=== PATIENT | female | born 1990 | race Caucasian/White ===

== ENCOUNTER 2020-09-01 06:49 | Outpatient (CLI) | payer OTHER ==
--- NOTE | 2020-09-01 12:31 | RAD ---
PA AND LATERAL VIEWS CHEST: HISTORY: Preoperative evaluation. FINDINGS: The cardiomediastinum is normal. The lungs are well expanded and clear. The bony thorax is normal. IMPRESSION: Normal exam. POS: AH
[2020-09-01 12:58] LABS: #Eosinphils 0.3 10x3/uL (0.0-0.5); #Monocytes 0.5 10x3/uL (0.0-1.1); #Neutrophils 4.3 10x3/uL (1.5-8.4); %Basophils 0.4 % (0.0-2.0); %Eosinophils 3.6 % (0.0-6.0); %Lymphocytes 29.9 % (18.0-47.0); %Monocytes 7.4 % (0.0-10.0); %Neutrophils 58.6 % (40.0-75.0); Hemoglobin 13.7 g/dL (12.0-16.0); Mean Corpuscular HGB CONC 31.6 G/DL (32.0-36.0); Mean Corpuscular Hemoglobin 28.9 PG (27.0-33.0); Mean Corpuscular Volume 91.4 fl (80.0-100.0); Mean Platelet Volume 9.9 fl (7.4-10.4); Platelet Count 246 10x3/uL (130-400); RBC Distribution Width 12.9 % (11.5-14.5); Red Blood Cell (RBC) Count 4.74 10x6/uL (3.90-5.20); White Blood Cell (WBC) Count 7.3 10x3/uL (4.5-11.0)
[2020-09-01 13:00] LABS: BHCG - Serum Negative (NEGATIVE); Pregs Control Background? CLEAR/WHITE (CLR/WHITE); Pregs Control Bar Appear? YES (CONTROL BAR)
[2020-09-01 15:00] LABS: ALT (SGPT) 56 U/L (8-55); AST (SGOT) 35 U/L (5-34); Albumin 4.3 g/dL (3.5-5.0); Alkaline Phosphatase 54 U/L (40-110); Anion Gap 20 mmol/L (10-20); BUN (Urea Nitrogen) 9 mg/dL (7.0-18.7); Bilirubin, Total 0.7 mg/dL (0.2-1.2); Calc. Creatinine Clearance 0 mL/min (70-130); Calcium 9.2 mg/dL (7.8-10.44); Carbon Dioxide 21 mmol/L (22-29); Chloride 105 mmol/L (98-107); Estimated GFR-MDRD 89; Globulin 2.3 g/dL (2.4-3.5); Glucose 85 mg/dL (70-105); Potassium 4.7 mmol/L (3.5-5.1); Protein, Total 6.6 g/dL (6.0-8.3); Sodium 141 mmol/L (136-145)
[2020-09-01 16:45] LABS: Hemoglobin A1c 5.3 % (4.0-6.0)
[2020-09-04 00:12] LABS: SARS-CoV-2 MS2 Positive; SARS-CoV-2 N Gene Negative; SARS-CoV-2 S Gene Negative; SARS-CoV-2 by NAA Not Detected (Not Detected); SARS-CoV-2 orf1ab Negative
--- NOTE | 2020-09-06 19:24 | EKG ---
Test Reason : PREOP Blood Pressure : / mmHG Vent. Rate : 077 BPM Atrial Rate : 077 BPM P-R Int : 130 ms QRS Dur : 080 ms QT Int : 392 ms P-R-T Axes : 022 056 051 degrees QTc Int : 443 ms Normal sinus rhythm Normal ECG Confirmed by RICHIE SCHMIDT, DR. Ramos ([id number]) on 09/06/2020 7:24:06 PM Referred By: JAKE Confirmed By:DR. Rachel QUIROZ MD
== END 2020-09-01 06:50 | disposition home or self-care (01) ==
LOC: LABBT 06:49
PROVIDERS: ATTEND Surgery
DX: Z01.818 Encounter for other preprocedural examination (principal); Z20.828 Contact with and (suspected) exposure to other viral communicable diseases; E66.01 Morbid (severe) obesity due to excess calories
CPT/HCPCS: 71046; 80053; 83036; 84703; 85025; 87635; 93005; 93010; U0003

== ENCOUNTER 2020-09-01 11:45 | Inpatient (IN) | payer OTHER ==
[2020-09-01 09:27] VITALS: BMI 49.5
[2020-09-06] MEDS ORDERED: Dexamethasone 20 MG/5 ML VIAL ONE (08:37)
[2020-09-06] MEDS ORDERED: Lidocaine 1% PF 5 ML VIAL ONE (08:37)
[2020-09-06] MEDS ORDERED: Ondansetron PF 4 MG/2 ML Vial ONE (08:37)
[2020-09-06] MEDS ORDERED: Rocuronium Bromide 10 MG/ML (10ML VIAL) ONE (08:37)
[2020-09-06] MEDS ORDERED: PROPOFOL 200 MG/20 ML VIAL ONE (08:37)
[2020-09-06] MEDS ORDERED: SUGAMMADEX SODIUM 200 MG/2 ML VIAL ONE (12:50)
[2020-09-06] MEDS ORDERED: Fentanyl 100 MCG/2 ML VIAL ONE ×2 (12:50→14:51)
[2020-09-06] MEDS ORDERED: Bupivacaine 0.25% HCL 30 ML VIAL ONE (12:51)
[2020-09-06] MEDS ORDERED: Lidocaine 1% w/Epinephrine 1:100K 20 ML VIAL ONE (12:51)
[2020-09-06] MEDS ORDERED: Promethazine HCl 25 MG/ML VIAL IM PRN ×3 (14:25→15:45)
[2020-09-06] MEDS ORDERED: Promethazine HCl 25 MG/ML VIAL SLOW IVP PRN (14:25)
[2020-09-06] MEDS ORDERED: Meperidine HCl/PF 25 MG/ML VIAL SLOW IVP PRN (14:25)
[2020-09-06] MEDS ORDERED: HYDROmorphone 2 MG/ML VIAL SLOW IVP PRN (14:25)
[2020-09-06] MEDS ORDERED: Morphine Sulfate 2 MG/ML SYRINGE SLOW IVP PRN (14:25)
[2020-09-06] MEDS ORDERED: Ondansetron HCl/PF 4 MG/2 ML Vial IVP PRN (14:25)
[2020-09-06] MEDS ORDERED: Ketorolac Tromethamine 30 MG/ML VIAL IVP PRN ×2 (14:25→14:34)
[2020-09-06] MEDS ORDERED: PACU-Morphine 4MG/ML VIAL SLOW IVP PRN (14:25)
[2020-09-06] MEDS ORDERED: fentaNYL Citrate/PF 2,000 MCG in Sodium Chloride 0.9% 60 ML IV PRN (14:34)
[2020-09-06] MEDS ORDERED: Naloxone HCl 0.4 mg/ml Vial IV PRN (14:34)
[2020-09-06] MEDS ORDERED: Zolpidem Tartrate 5 MG TAB PO PRN (14:34)
[2020-09-06] MEDS ORDERED: Ondansetron PF 4 MG/2 ML Vial IVP PRN ×2 (14:34→15:45)
[2020-09-06] MEDS ORDERED: diphenhydrAMINE 50 MG/ML VIAL IVP PRN ×2 (14:34→15:45)
[2020-09-06] MEDS ORDERED: diphenhydrAMINE 25 MG CAP PO PRN (14:34)
[2020-09-06] MEDS ORDERED: diphenhydrAMINE 50 MG/ML VIAL IM PRN (14:34)
[2020-09-06] MEDS ORDERED: Communication Order-Pharmacy FS SCH (14:45)
[2020-09-06] MEDS ORDERED: Promethazine HCl 25 MG/ML VIAL ONE (14:51)
[2020-09-06] MEDS ORDERED: Dextrose 50% Abboject 50 ML SYRINGE SLOW IVP PRN (15:45)
[2020-09-06] MEDS ORDERED: Dextrose 5% in Water 1,000 ML IV PRN (15:45)
[2020-09-06] MEDS ORDERED: hydrALAZINE 20 MG/ML VIAL SLOW IVP PRN (15:45)
[2020-09-06] MEDS ORDERED: Hydrocodone-Acetamin 15 ML UDCUP PO PRN (15:45)
[2020-09-06] MEDS: D5 1/2 NS w/20 mEq KCL 1,000 ML IV SCH (17:04)
--- NOTE | 2020-09-06 18:09 | OP ---
DATE OF PROCEDURE: 09/06/2020 PREOPERATIVE DIAGNOSIS: Morbid obesity with a body mass index of 49. POSTOPERATIVE DIAGNOSIS: Morbid obesity with a body mass index of 49. PROCEDURE PERFORMED: Laparoscopic sleeve gastrectomy with Ethicon staple line reinforcements and 38-[place] bougie. ANESTHESIA: General. ESTIMATED BLOOD LOSS: Minimal. COMPLICATIONS: None. SPECIMEN: Stomach. DESCRIPTION OF PROCEDURE: The patient was taken to the operating room and laid supine on the operating room table. After general anesthetic was obtained, arms and legs were double strapped to bariatric table. OG tube was used to decompress the stomach. The abdomen was prepped and draped in a sterile fashion. Left subcostal 5 mm Optiview trocar placed in the usual fashion and high-flow pneumoperitoneum was obtained. Right and left abdominal 12 mm ports as well as a right subcostal 5 mm port were placed under direct visualization. 5 mm incision was made at the xiphoid and Yeyo was used to raise the liver off the GE junction. The short gastrics were taken down from a distance of 6 cm proximal to the pylorus all the way to the left brandy. Left brandy, posterior fundus, angle of His were completely dissected. There was no hiatal hernia. Short gastrics were taken down to a distance of 6 cm proximal to the pylorus. A 38-[place] bougie was brought in and its tip left in the antrum of the stomach. Multiple loads of an [place] stapling device with Ethicon staple line reinforcements were used to form the sleeve. The first was fired up at the distance of 6 cm proximal to the pylorus angled up to the incisura. Care was taken to avoid being too close to the incisura. Multiple loads then fired up along the bougie. Stomach was completely transected at the angle of His. Stomach was removed from left abdominal incision. This defect in the fascia was closed using GraNee needle and Vicryl tie. Yeyo retractor was removed. EGD scope was passed esophagus stomach to the level of duodenum without obstruction. There was no stricture at the incisura. EGD scope was passed through the esophagus and stomach to the level of the duodenum without obstruction. There was no stricture at the incisura. EGD scope was used to decompress the stomach, it was pulled and removed. All port sites were infiltrated using local anesthetic. All ports were removed under camera visualization without bleeding. Pneumoperitoneum was let down. All incisions were closed using 4-0 Monocryl and Dermabond. The patient was sent to Recovery in stable condition. All instrument counts, needle counts, and lap counts were correct. Job ID: [id number]
[2020-09-06] MEDS ORDERED: Enoxaparin Sodium 40 MG/0.4 ML SYRINGE SC SCH (21:00)
[2020-09-07 05:20] LABS: #Lymphocytes 0.8 thou/uL (1.20-3.40); #Monocytes 0.4 thou/uL (0.11-0.59); #Neutrophils 11.6 thou/uL (1.40-6.50); %Basophils 0.1 % (0.0-1.0); %Eosinophils 0.1 % (0.0-10.0); %Lymphocytes 5.9 % (21.0-51.0); %Monocytes 3.1 % (0.0-10.0); %Neutrophils 90.7 % (42.0-75.0); Hemoglobin 13.8 g/dL (12.0-16.0); Mean Corpuscular HGB CONC 33.1 g/dL (32.0-36.0); Mean Corpuscular Hemoglobin 29.8 pg (27.0-31.0); Mean Corpuscular Volume 89.9 fL (78.0-98.0); Mean Platelet Volume 7.4 fL (7.4-10.4); Platelet Count 238 thou/uL (130-400); RBC Distribution Width 12.1 % (11.5-14.5); Red Blood Cell (RBC) Count 4.63 mill/uL (4.20-5.40); White Blood Cell (WBC) Count 12.7 thou/uL (4.8-10.8)
[2020-09-07 05:38] LABS: Anion Gap 12 mmol/L (10-20); BUN (Urea Nitrogen) 4 mg/dL (7.0-18.7); Calc. Creatinine Clearance 257 mL/min (70-130); Carbon Dioxide 24 mmol/L (22-29); Chloride 104 mmol/L (98-107); Estimated GFR-MDRD Greater than 90; Glucose 152 mg/dL (70-105); Potassium 4.2 mmol/L (3.5-5.1); Sodium 136 mmol/L (136-145)
[2020-09-07] MEDS: D5 1/2 NS w/20 mEq KCL 1,000 ML IV SCH ×2 (06:04→08:20)
--- NOTE | 2020-09-07 07:05 | PDOC.GSPN ---
Surgery Progress Note: Subj - Subjective Patient reports: tolerating liquids well (Has only drank water so far, but is to lerating it.), still having pain (complains of pain in the upper abdominal area, rating it a 5/10. In no acute distress otherwise.) Surgery Progress Note: Obj - Vital signs Vital signs: Vital Signs - Most Recent Temp Pulse Resp BP Pulse Ox 98 F 80 16 115/81 92 L 09/07/20 04:10 09/07/20 04:10 09/07/20 04:10 09/07/20 04:10 09/07/20 04:10 - Physical Exam General: no distress, well nourished, moderate pain Cardiovascular: regular rate and rhythm, no murmur Respiratory: clear to auscultation, normal respiratory effort Abdomen: soft, nondistended Wound: healing well Surgery Progress Note: Results - Labs Result Diagrams: 09/07/20 05:07 09/07/20 05:07 Lab results: Laboratory Results - last 12 hr 09/07/20 09/07/20 05:07 05:07 WBC 12.7 H RBC 4.63 Hgb 13.8 Hct 41.6 MCV 89.9 MCH 29.8 MCHC 33.1 RDW 12.1 Plt Count 238 MPV 7.4 Neutrophils % 90.7 H Lymphocytes % 5.9 L Monocytes % 3.1 Eosinophils % 0.1 Basophils % 0.1 Neutrophils # 11.6 H Lymphocytes # 0.8 L Monocytes # 0.4 Eosinophils # 0.0 Basophils # 0.0 Sodium 136 Potassium 4.2 Chloride 104 Carbon Dioxide 24 Anion Gap 12 BUN 4 L Creatinine 0.71 Estimated GFR (MDRD) Greater than 90 Glucose 152 H Calcium 9.0 Surgery Progress Note: A/P - Plan Plan: Ms. Mei Nielsen is a 30 yo female 1 day post gastric sleeve. Today, she complains of upper abdominal pain, rating it a 5/10. She describes it as aching and tight. She isn't in acute distress. She states that the fentanyl isn't working as well for her, and has tried to use it as little as possible. Otherwise, pt is ambulating, utilizing the spirometer. She denies SOB, fever, chills, and vomiting. Plan: Continue monitoring vitals and labs. Continue to control pain.
[2020-09-07] MEDS ORDERED: Hydrocodone-Acetamin 15 ML UDCUP PO PRN (08:54)
[2020-09-07] MEDS ORDERED: FLU VACC QS2020-21(6MOS UP)/PF 60 MCG/0.5 ML SYRINGE IM ONE (09:00)
[2020-09-07] MEDS ORDERED: Pantoprazole 40 MG VIAL IVP SCH (09:00)
[2020-09-07 11:28] VITALS: BP 120/75; TEMP 98.2
--- NOTE | 2020-09-08 01:00 | DIS ---
DATE OF ADMISSION: 09/06/2020 DATE OF DISCHARGE: 09/07/2020 ADMITTING DIAGNOSIS: Morbid obesity. DISCHARGE DIAGNOSIS: Morbid obesity. PROCEDURE: Laparoscopic sleeve gastrectomy by Dr. Amin without complication. CONDITION ON DISCHARGE: Improved. STAFF: Nas Amin MD HOSPITAL COURSE: Patient was doing well on postop day one, tolerating liquids, ambulatory. She is discharged home. She will follow up with me in the office in 2 weeks. Prescriptions for Lortab Elixir, Zofran, pantoprazole already called to her pharmacy. Job ID: [id number]
== END 2020-09-07 12:21 | disposition home or self-care (01) | DRG 621 ==
LOC: SURG A 09-06 10:22
PROVIDERS: ADMIT Surgery; ATTEND Surgery
PROC: 0DB64Z3 Excision of Stomach, Percutaneous Endoscopic Approach, Vertical (ICD-10-PCS; principal; 2020-09-06)
PROC: 0DJ08ZZ Inspection of Upper Intestinal Tract, Via Natural or Artificial Opening Endoscopic (ICD-10-PCS; 2020-09-06)
DX: E66.01 Morbid (severe) obesity due to excess calories (principal); Z68.42 Body mass index [BMI] 45.0-49.9, adult; Z90.49 Acquired absence of other specified parts of digestive tract
CPT/HCPCS: 36415; 80048; 85025; 88307; 88312; C9113; J0690; J1100; J1650; J2405; J2550; J2704; J3010; J3480; S0020

== ENCOUNTER 2020-09-08 10:06 | Emergency (ER) | payer OTHER ==
[2020-09-08] MEDS ORDERED: Promethazine HCl 25 MG/ML VIAL ONE (10:19)
[2020-09-08] MEDS ORDERED: Ondansetron PF 4 MG/2 ML Vial ONE (10:19)
[2020-09-08 11:31] LABS: #Lymphocytes 2.5 thou/uL (1.20-3.40); #Neutrophils 7.5 thou/uL (1.40-6.50); %Basophils 0.1 % (0.0-1.0); %Eosinophils 0.2 % (0.0-10.0); %Lymphocytes 22.6 % (21.0-51.0); %Neutrophils 68.2 % (42.0-75.0); Hemoglobin 12.9 g/dL (12.0-16.0); Mean Corpuscular HGB CONC 32.6 g/dL (32.0-36.0); Mean Corpuscular Hemoglobin 30.1 pg (27.0-31.0); Mean Corpuscular Volume 92.3 fL (78.0-98.0); Mean Platelet Volume 7.5 fL (7.4-10.4); Platelet Count 207 thou/uL (130-400); RBC Distribution Width 12.5 % (11.5-14.5); White Blood Cell (WBC) Count 11.1 thou/uL (4.8-10.8)
[2020-09-08 11:54] LABS: ALT (SGPT) 35 U/L (8-55); AST (SGOT) 19 U/L (5-34); Albumin 3.9 g/dL (3.5-5.0); Alkaline Phosphatase 49 U/L (40-110); Anion Gap 14 mmol/L (10-20); BUN (Urea Nitrogen) 9 mg/dL (7.0-18.7); Bilirubin, Total 0.6 mg/dL (0.2-1.2); Calc. Creatinine Clearance 0 mL/min (70-130); Carbon Dioxide 25 mmol/L (22-29); Chloride 104 mmol/L (98-107); Estimated GFR-MDRD Greater than 90; Globulin 2.6 g/dL (2.4-3.5); Glucose 73 mg/dL (70-105); Lipase 9 U/L (8-78); Potassium 3.9 mmol/L (3.5-5.1); Protein, Total 6.5 g/dL (6.0-8.3); Sodium 139 mmol/L (136-145)
[2020-09-08 13:22] LABS: Bilirubin Negative (Negative); Blood, Urine Negative (Negative); Clarity Clear (Clear); Glucose, Urine (Dipstick) Normal (Negative); Ketone, Urine 150 mg/dL (Negative); Leukocyte Negative Leu/uL (Negative); Nitrite Negative (Negative); Protein, Urine (Dipstick) 20 mg/dL (Neg-Trace); pH, Urine 6.5 (5.0-9.0)
== END 2020-09-08 13:21 | disposition home or self-care (01) ==
LOC: ERS 10:06
DX: R11.2 Nausea with vomiting, unspecified (principal)
CPT/HCPCS: 80053; 81003; 83690; 85025; 96374; 96375; J2405; J2550

== ENCOUNTER 2020-10-02 15:12 | Day surgery (SDC) | payer OTHER ==
[2020-10-02] MEDS ORDERED: Ondansetron PF 4 MG/2 ML Vial IVP PRN (15:23)
[2020-10-02] MEDS ORDERED: Sodium Chloride 0.9% 1,000 ML IV SCH (15:30)
[2020-10-02 15:57] VITALS: BP 111/80; TEMP 97.6
[2020-10-02] MEDS ORDERED: Multivitamins, Adult 10 ML, Thiamine HCl 100 MG in Sodium Chloride 0.9% 1,000 ML IV SCH (16:00)
== END 2020-10-02 19:14 | disposition home or self-care (01) ==
LOC: ONC/OP 15:12
PROVIDERS: ATTEND Surgery
DX: E86.0 Dehydration (principal)
CPT/HCPCS: 96361; 96365; 96366; J3411; J7050

== ENCOUNTER 2021-10-13 13:36 | Emergency (ER) | payer OTHER | END 2021-10-13 15:49 | disposition home or self-care (01) | LOC: ERS 13:36 | DX: S00.33XA Contusion of nose, initial encounter (principal); S05.11XA Contusion of eyeball and orbital tissues, right eye, initial encounter; W54.1XXA Struck by dog, initial encounter | CPT/HCPCS: 70486 ==

== ENCOUNTER 2022-11-26 13:36 | Outpatient (CLI) | payer BC | END 2022-11-26 13:37 | disposition home or self-care (01) | LOC: ULT 13:36 | PROVIDERS: ATTEND Physician Assistant | DX: R10.2 Pelvic and perineal pain (principal); N83.202 Unspecified ovarian cyst, left side; N85.4 Malposition of uterus | CPT/HCPCS: 76856 ==

== ENCOUNTER 2022-12-12 13:44 | Outpatient (CLI) | payer BC | END 2022-12-12 13:45 | disposition home or self-care (01) | LOC: BICMAMMO 13:44 | PROVIDERS: ATTEND Physician Assistant | DX: N63.20 Unspecified lump in the left breast, unspecified quadrant (principal) | CPT/HCPCS: 77066; G0279 ==

== ENCOUNTER 2024-04-22 12:59 | Outpatient (CLI) | payer BC ==
[2024-04-22 14:21] LABS: #Basophils 0.03 10x3/uL (0.0-0.2); #Neutrophils 3.18 10x3/uL (1.5-8.4); %Basophils 0.5 % (0.0-2.0); %Eosinophils 3.1 % (0.0-6.0); %Lymphocytes 39.7 % (18.0-47.0); %Monocytes 7.7 % (0.0-10.0); %Neutrophils 48.8 % (40.0-75.0); Hematocrit 38.5 % (34.9-44.5); Hemoglobin 12.4 g/dL (12.0-15.5); Mean Corpuscular HGB CONC 32.2 g/dL (32.0-36.0); Mean Corpuscular Hemoglobin 27.7 pg (27.0-33.0); Mean Corpuscular Volume 86.1 fL (81.6-98.3); Mean Platelet Volume 9.8 fL (7.4-10.4); Platelet Count 266 10x3/uL (150-450); RBC Distribution Width 14.2 % (11.5-14.5); Red Blood Cell (RBC) Count 4.47 10x6/uL (3.90-5.03); White Blood Cell (WBC) Count 6.5 10x3/uL (3.5-10.5)
[2024-04-22 14:36] LABS: ALT (SGPT) 33 U/L (8-55); AST (SGOT) 28 U/L (5-34); Albumin 4.2 g/dL (3.5-5.0); Alkaline Phosphatase 60 U/L (40-110); Anion Gap 13 mmol/L (10-20); BUN (Urea Nitrogen) 11 mg/dL (7.0-18.7); Bilirubin, Total 0.5 mg/dL (0.2-1.2); Calc. Creatinine Clearance 0 mL/min (70-130); Calcium 9.7 mg/dL (7.8-10.44); Carbon Dioxide 27 mmol/L (22-29); Chloride 105 mmol/L (98-107); Estimated GFR 103; Globulin 2.8 g/dL (2.4-3.5); Glucose 79 mg/dL (70-105); Potassium 4.5 mmol/L (3.5-5.1); Sodium 140 mmol/L (136-145)
== END 2024-04-22 13:00 | disposition home or self-care (01) ==
LOC: LABBT 12:59
PROVIDERS: ATTEND Surgery
DX: Z01.812 Encounter for preprocedural laboratory examination (principal); K21.9 Gastro-esophageal reflux disease without esophagitis
CPT/HCPCS: 80053; 85025

== ENCOUNTER 2024-04-22 13:00 | Inpatient (IN) | payer BC ==
[2024-04-28] MEDS ORDERED: fentaNYL PF 100 MCG/2 ML SYRINGE ONE (08:02)
[2024-04-28] MEDS ORDERED: PROPOFOL 20 ML ONE (08:02)
[2024-04-28] MEDS ORDERED: Rocuronium Bromide 10 MG/ML (10ML VIAL) ONE (08:03)
[2024-04-28] MEDS ORDERED: Lidocaine 1% PF 5 ML VIAL ONE (08:03)
[2024-04-28] MEDS ORDERED: Bupivacaine 0.25% HCL 30 ML VIAL ONE (08:15)
[2024-04-28] MEDS ORDERED: EPINEPHrine 1 MG/ML VIAL ONE (08:15)
[2024-04-28] MEDS ORDERED: Heparin 5,000 UNITS/ML VIAL ONE (08:51)
[2024-04-28] MEDS ORDERED: Midazolam HCl 2 mg/2 ml Vial ONE (09:05)
[2024-04-28] MEDS ORDERED: CEFAZOLIN 2 GM VIAL ONE (09:18)
[2024-04-28] MEDS ORDERED: Sodium Chloride 0.9% 100 ML ONE (09:18)
[2024-04-28] MEDS ORDERED: Dexamethasone 20 MG/5 ML VIAL ONE (09:48)
[2024-04-28] MEDS ORDERED: SUGAMMADEX SODIUM 200 MG/2 ML VIAL ONE (11:01)
[2024-04-28] MEDS ORDERED: Promethazine HCl 25 MG/ML VIAL IM PRN ×2 (11:20→11:23)
[2024-04-28] MEDS ORDERED: Ondansetron HCl/PF 4 MG/2 ML Vial IVP PRN (11:20)
[2024-04-28] MEDS ORDERED: Ipratropium/Albuterol 3 ML NEB NEB PRN (11:23)
[2024-04-28] MEDS ORDERED: traMADol HCl 50 MG TAB PO PRN ×2 (11:23)
[2024-04-28] MEDS ORDERED: Dextrose 5% in Water 1,000 ML IV PRN (11:23)
[2024-04-28] MEDS ORDERED: Glucagon 1 MG/ML KIT IM PRN (11:23)
[2024-04-28] MEDS ORDERED: diphenhydrAMINE 50 MG/ML VIAL IVP PRN (11:23)
[2024-04-28] MEDS ORDERED: Dextrose 50% Abboject 50 ML SYRINGE SLOW IVP PRN (11:23)
[2024-04-28] MEDS ORDERED: hydrALAZINE 20 MG/ML VIAL SLOW IVP PRN (11:23)
[2024-04-28] MEDS ORDERED: Ondansetron PF 4 MG/2 ML Vial IVP PRN (11:23)
[2024-04-28] MEDS ORDERED: fentaNYL 50 mcg/mL 1 mL Vial ONE ×4 (11:32→13:33)
[2024-04-28] MEDS: Acetaminophen 325 MG (10.15 ML) UDCUP PO SCH (14:03)
[2024-04-28 14:12] VITALS: BMI 44.4
[2024-04-28] MEDS: D5 1/2 NS w/20 mEq KCL 1,000 ML IV SCH (14:45)
[2024-04-28] MEDS: Ketorolac Tromethamine 30 MG (1 mL) VIAL IVP PRN (15:49)
[2024-04-28] MEDS: Morphine 4 MG/ML VIAL SLOW IVP PRN (16:57)
[2024-04-29 05:40] LABS: #Basophils Less than 0.03 10x3/uL (0.0-0.2); #Eosinphils Less than 0.03 10x3/uL (0.0-0.7); %Basophils 0.2 % (0.0-1.0); %Lymphocytes 9.9 % (21.0-51.0); %Monocytes 7.1 % (0.0-10.0); %Neutrophils 82.5 % (42.0-75.0); Hematocrit 35.6 % (36.0-47.0); Hemoglobin 11.3 g/dL (12.0-16.0); Mean Corpuscular HGB CONC 31.7 g/dL (32.0-36.0); Mean Corpuscular Hemoglobin 27.2 pg (27.0-31.0); Mean Corpuscular Volume 85.8 fL (78.0-98.0); Mean Platelet Volume 10.1 fL (7.4-10.4); Platelet Count 207 10x3/uL (130-400); Red Blood Cell (RBC) Count 4.15 mill/uL (4.20-5.40)
[2024-04-29 05:59] LABS: Anion Gap 12 mmol/L (10-20); BUN (Urea Nitrogen) 7 mg/dL (7.0-18.7); Calc. Creatinine Clearance 216 mL/min (70-130); Carbon Dioxide 22 mmol/L (22-29); Chloride 108 mmol/L (98-107); Estimated GFR 111; Glucose 134 mg/dL (70-105); Potassium 4.5 mmol/L (3.5-5.1); Sodium 137 mmol/L (136-145)
[2024-04-29 08:01] VITALS: BP 157/85; TEMP 98.1
[2024-04-29] MEDS: Enoxaparin 40 MG (0.4 mL) SYRINGE SC SCH (08:11)
[2024-04-29] MEDS: Pantoprazole 40 MG VIAL IVP SCH (08:12)
[2024-04-29] MEDS: Estradiol 1 MG TAB PO SCH (08:12)
== END 2024-04-29 11:20 | disposition home or self-care (01) | DRG 327 ==
LOC: SURG A 04-28 06:54 → EDSTATUS 04-28 13:00 → SURG A 04-28 14:09
PROVIDERS: ADMIT Surgery; ATTEND Surgery
PROC: 0D164ZA Bypass Stomach to Jejunum, Percutaneous Endoscopic Approach (ICD-10-PCS; principal; 2024-04-28)
PROC: 8E0W4CZ Robotic Assisted Procedure of Trunk Region, Percutaneous Endoscopic Approach (ICD-10-PCS; 2024-04-28)
DX: K21.9 Gastro-esophageal reflux disease without esophagitis (principal); K31.1 Adult hypertrophic pyloric stenosis; Z68.41 Body mass index [BMI] 40.0-44.9, adult; E66.01 Morbid (severe) obesity due to excess calories; Z90.710 Acquired absence of both cervix and uterus; Z90.49 Acquired absence of other specified parts of digestive tract; E55.9 Vitamin D deficiency, unspecified; G43.909 Migraine, unspecified, not intractable, without status migrainosus; Z98.84 Bariatric surgery status; Z79.899 Other long term (current) drug therapy
CPT/HCPCS: 36415; 36416; 80048; 85025; 93005; 93010; C9113; J0171; J0665; J1100; J1644; J1650; J1885; J2250; J2270; J2704; J3010; J3480; J3490